=== PATIENT | female | born 1935 | race Caucasian/White ===

== ENCOUNTER → 2017-03-26 | Outpatient (CLI) | payer MEDICARE, BC ==
[~2017-03-26] MED LIST: AMLO10 PO; ASPI325T PO; ATEN1TAB75; COZA50TA PO; ENAL20TA81; FEMHRT 1/5 PO; LEVEMIR SC; NIAC250C6 PO; SAXA1TBM PO; SYNT25TA; [UNRECOGNIZED DRUG - CODE]
[2017-03-26 10:23] LABS: CHLORIDE 105 MEQ/L (98-107); POTASSIUM 4.8 MEQ/L (3.5-5.1); SODIUM (NA) 140 MEQ/L (136-145)
[2017-03-26 10:26] LABS: ANION GAP 5 MEQ/L (5-15); BICARBONATE 30.4 MEQ/L (21.0-32.0); GLUCOSE,FASTING 250 MG/DL (74-99)
[2017-03-26 10:27] LABS: BLOOD UREA NITROGEN 18 MG/DL (7-18)
[2017-03-26 10:29] LABS: ALT (GPT) 24 U/L (10-53); AST (GOT) 11 U/L (15-37)
[2017-03-26 10:30] LABS: GLOMERULAR FILTRATION RATE 65 ML/MIN (>89)
[2017-03-26 10:31] LABS: TOTAL BILIRUBIN ADULT 0.7 MG/DL (0.2-1.0)
[2017-03-26 10:32] LABS: ALKALINE PHOSPHATASE 78 U/L (45-117)
== END ==
LOC: PLAB 09:02
PROVIDERS: ATTEND Family Medicine
DX: E11.65 Type 2 diabetes mellitus with hyperglycemia (principal); I10 Essential (primary) hypertension
CPT/HCPCS: 36415; 80053